=== PATIENT | female | born 1965 | race Caucasian/White ===

== ENCOUNTER 2023-04-02 07:27 | Day surgery (SDC) | payer BC, OTHER ==
[2023-03-31 11:35] VITALS: BMI 23.0
[2023-04-02 08:04] LABS: Glucose,Whole Blood 86 mg/dL (70-110)
[2023-04-02] MEDS: LACTATED RINGERS 1,000 ML IV SCH (08:09)
[2023-04-02 08:17] VITALS: TEMP 98.1
[2023-04-02] MEDS: HYDROCORTISONE SUCCINATE 100 MG/2 ML VIAL IVP ONE (08:18)
[2023-04-02] MEDS ORDERED: PROPOFOL 10 MG/ML 20 ML VIAL IV ONE (08:52)
--- NOTE | 2023-04-02 09:11 | P.PCN ---
Date of Procedure: 04/02/23 Procedure(s) Performed: BRIEF HISTORY: Patient is a 57-year-old pleasant white female scheduled for an elective colonoscopy as a part of surveillance of long-standing history of ulcerative colitis diagnosed in 1998. She was maintained on 6-mercaptopurine since 2001 until 2 years ago. She stopped the medication that she was in clinical remission. For the last 2 months she is been having rectal bleeding and diarrhea and a flareup of ulcerative colitis and was started on prednisone 40 mg daily. Presently having about 3-4 bowel movements daily. PROCEDURE PERFORMED: Colonoscopy With random biopsies. PREOPERATIVE DIAGNOSIS:Long-standing history of ulcerative colitis with recent flareup]. IV sedation per Anesthesia. PROCEDURE: After informed consent was obtained, the patient, was brought into the endoscopy unit. IV sedation was administered by Anesthesia under continuous monitoring. Digital rectal examination was normal. Initially the Olympus CF-160 flexible video colonoscope was then inserted in the rectum, gradually advanced into the cecum without any difficulty. Careful examination was performed as the scope was gradually being withdrawn. Ileocecal valve and the appendiceal orifice were visualized and appeared normal. Prep was excellent. Mucosa of the cecum, ascending colon, transverse colon, descending colon, appeared normal. There was mild mucosal erythema, friability and granularity with spontaneous bleeding involving the rectum and sigmoid colon up to 30 cm from the anal verge consistent with active proctosigmoiditis. Biopsies were done from cecum to rectum at every 10 cm into well. Retroflexion was performed in the rectum and no lesions were seen. The patient tolerated the procedure well. IMPRESSION: Active proctosigmoiditis with mucosal erythema, friability and mild granularity consistent with mild colitis rest of the colon appeared normal RECOMMENDATIONS: Findings of this examination were discussed with the patient as well as her family. She was advised to continue with prednisone 40 mg daily and continue to taper by 5 minute grams every week. She'll follow up in office in 2-3 weeks..
[2023-04-02 09:25] VITALS: RESP 16
[2023-04-02 09:56] VITALS: BP 100/61; PULSE 72
== END 2023-04-02 09:42 ==
LOC: ORWHC2ENDO 07:27
PROVIDERS: ATTEND Internal Medicine Gastroenterology
DX: K51.20 Ulcerative (chronic) proctitis without complications (principal); K52.9 Noninfective gastroenteritis and colitis, unspecified; E04.1 Nontoxic single thyroid nodule; Z79.899 Other long term (current) drug therapy; Z98.890 Other specified postprocedural states
CPT/HCPCS: 88305; 45380; J1720; J2704

== ENCOUNTER → 2023-08-28 | Outpatient (CLI) | payer BC ==
[2023-08-28 12:55] LABS: Basophils # (A) 0.05 X 10*3/uL (0.00-0.10); Basophils % (A) 0.6 %; Eosinophils # (A) 0.08 X 10*3/uL (0.04-0.35); Eosinophils % (A) 0.9 %; HCT 44.5 % (37.2-46.3); HGB 14.2 g/dL (12.0-15.0); Lymphocytes # (A) 1.72 X 10*3/uL (0.90-5.00); Lymphocytes % (A) 19.9 %; MCH 30.3 pg (27.0-32.0); MCHC 31.9 g/dL (32.0-37.0); MCV 94.9 FL (80.0-97.0); Mean Platelet Volume 9.7 FL (9.5-12.2); Monocytes # (A) 0.77 X 10*3/uL (0.20-1.00); Monocytes % (A) 8.9 %; NRBC Per 100 WBC 0 X 10*3/uL (0.00-0.01); Neutrophils # (A) 6.01 X 10*3/uL (1.80-7.70); Neutrophils % (A) 69.4 %; Platelet Count 382 X 10*3/uL (140-440); RBC 4.69 X 10*6/uL (4.10-5.20); RDW 12.9 % (11.5-14.5); WBC 8.66 X 10*3/uL (4.50-10.00)
[2023-08-29 08:43] LABS: Hepatitis B Surface Antigen Nonreactive (Nonreactive); Hepatitis C IgG Antibody Nonreactive (Nonreactive)
[2023-08-29 09:03] LABS: ALT 18 U/L (8-44); AST 20 U/L (13-35); Albumin 3.8 g/dL (3.8-4.9); Albumin/Globulin Ratio 1.73 Ratio (1.60-3.17); Alkaline Phosphatase 59 U/L (41-126); Blood Urea Nitrogen 12.3 mg/dL (9.0-27.0); Calcium 9.2 mg/dL (8.7-10.3); Carbon Dioxide 22.7 mmol/L (21.6-31.8); Chloride 102 mmol/L (96-109); Globulin 2.2 g/dL (1.6-3.3); Glucose 134 mg/dL (70-110); Potassium 4.1 mmol/L (3.5-5.5); Sodium 140 mmol/L (135-145); Total Bilirubin 0.4 mg/dL (0.3-1.2)
== END | disposition home or self-care (01) ==
LOC: LABWHC1 09:42
PROVIDERS: ATTEND Internal Medicine Gastroenterology
DX: K51.90 Ulcerative colitis, unspecified, without complications (principal)
CPT/HCPCS: 36415; 80053; 85025; 86480; 86704; 86803; 87340